=== PATIENT | male | born 1960 | race Hispanic/Latino ===

== ENCOUNTER 2016-07-23 22:43 | Emergency (ER) | payer BC ==
[~2016-07-23] VITALS: Ht 167.6 cm; Wt 106.8 kg
[~2016-07-23 22:43] MED LIST: CIPROFLOXACN500 MG PO; DILAUDID 2MG2 MG/TA1 PO; FLOMAX0.4 M1 PO; LORTAB 5/3255 MG PO; PERCOCET 10/31 COMBO PO; PERCOCET 5/325M1 TAB PO; TORADOL PO; ZOFRAN ODT4 MG PO
[2016-07-23 23:26] LABS: HEMATOCRIT 40.4 % (39.0-50.0); HEMOGLOBIN 13.8 g/dl (14.0-18.0); IMMATURE GRANULOCYTES 0.5 % (0.0-1.0); MEAN CELL VOLUME 86.5 fL CALC (80.0-100.0); MEAN CORPUSCULAR HGB 29.6 pG CALC (26.0-32.0); MEAN CORPUSCULAR HGB CONC 34.2 g/L CALC (32.0-36.0); NEUT# 3.92 thou/uL (1.82-7.42); RED BLOOD COUNT 4.67 mill/uL (4.70-6.10)
[2016-07-23 23:44] LABS: ALBUMIN 4.1 g/dL (3.2-5.0); ALKALINE PHOSPHATASE 72 u/l (38-126); AMYLASE 62 u/l (30-110); ANION GAP 14 (6-22 (CALC)); BILIRUBIN, TOTAL 0.4 mg/dL (0.0-1.4); BUN 19 mg/dL (9-20); BUN/CREATININE RATIO 20 (12-20 (CALC)); CALCIUM 9.1 mg/dL (8.4-10.2); CARBON DIOXIDE 26 mmol/l (22-30); CHLORIDE 106 mmol/l (95-108); GFR > 60 ML/MIN (>=60 (CALC)); GFR FOR AFR.AMER. > 60 ML/MIN (>=60 (CALC)); GLUCOSE 101 mg/dL (75-110); LIPASE 97 u/l (23-300); POTASSIUM 4.2 mmol/l (3.5-5.1); PROTHROMBIN TIME 10.6 SECONDS (9.0-12.5); SGOT/AST 18 u/l (17-59); SGPT/ALT 29 u/l (21-72); SODIUM 141 mmol/l (137-146); TOTAL PROTEIN 7.5 g/dL (6.3-8.2)
[2016-07-23 23:56] LABS: MYOGLOBIN 24 ng/mL (0 - 121)
[2016-07-24 04:07] VITALS: BP 105/53
== END 2016-07-24 04:07 | disposition home or self-care (01) | DRG 313 ==
LOC: ED 22:43
PROVIDERS: Emergency Medicine
DX: R07.89 Other chest pain (principal)

== ENCOUNTER 2017-09-26 12:45 | Emergency (ER) | payer MEDICAID ==
[~2017-09-26] VITALS: Ht 167.6 cm; Wt 106.0 kg
[2017-09-26] MEDS ORDERED: FLEXERIL PO (14:40)
[2017-09-26] MEDS ORDERED: TORADOL PO (14:40)
[2017-09-26 14:46] VITALS: BP 112/58
== END 2017-09-26 14:48 | disposition home or self-care (01) | DRG 93 ==
LOC: ED 12:45
DX: G89.29 Other chronic pain (principal); R11.0 Nausea; R51 Headache; Z91.81 History of falling

== ENCOUNTER 2020-03-22 07:13 | Day surgery (SDC) | payer MEDICAID ==
[~2020-03-22 07:13] MED LIST changes: +ALLEGRA180 MG PO; +ARNUITY EL50 MCG/ACT; +AZELASTINE HYDR1 SPR; +FLEXERIL PO; +FLONASE AL50 MCG/ACT; +LISINOPRIL10 MG PO; +LORATADINE10 M1 PO; +MECLIZINE25 MG PO; +SIMVASTATIN20 MG PO; +TAMSULOSIN HCL0.4 MG PO
[2020-03-22 10:07] VITALS: BP 136/77
--- NOTE | 2020-03-26 13:20 | NUR ---
PER PHYSICIAN, PT NOTIFIED OF COLONOSCOPY (03/22/20) FINDINGS. RECOMMENDATIONS COLONOSCOPY X 5 YEARS, HIGH FIBER DIET, OVER THE COUNTER SUPPOSITORIES AND HYDROCORTISONE CREAM USE NEEDED FOR HEMORRHOIDAL TREATMENT. PATIENT VERBALIZED UNDERSTANDING OF INFORMATION GIVEN. VERBALIZED NO FURTHER CONCERNS AT TIME OF CALL. REPORT AND NOTE FORWARDED TO PRIMARY CARE FOR CONTINUITY OF CARE.
== END 2020-03-22 09:52 | disposition home or self-care (01) ==
LOC: ENDO 07:13 → ORM 10:45
PROVIDERS: ATTEND Surgery
DX: Z12.11 Encounter for screening for malignant neoplasm of colon (principal); K57.30 Diverticulosis of large intestine without perforation or abscess without bleeding; K64.8 Other hemorrhoids; Z86.010 Personal history of colon polyps; Z20.828 Contact with and (suspected) exposure to other viral communicable diseases

== ENCOUNTER 2022-09-25 08:35 | Emergency (ER) | payer MEDICAID ==
[~2022-09-25] VITALS: Ht 167.6 cm; Wt 108.0 kg
[2022-09-25 08:45] VITALS: BP 138/82
[2022-09-25] MEDS ORDERED: MONTELUKAST SOD10 MG PO (08:56)
[2022-09-25] MEDS ORDERED: LOSARTAN POTASS50 MG PO (08:57)
[2022-09-25 09:00] VITALS: BP 101/61
[2022-09-25 11:16] VITALS: BP 101/61
== END 2022-09-25 11:28 | disposition home or self-care (01) ==
LOC: ED 08:35
DX: R51.9 Headache, unspecified (principal); I10 Essential (primary) hypertension